=== PATIENT | male | born 1955 | race Caucasian/White ===

== ENCOUNTER 2016-04-26 07:00 | Day surgery (SDC) | payer OTHER ==
[2016-04-26] MEDS ORDERED: LACTATED RINGERS 1,000 ML IV ONE ×2 (08:13→11:55)
[2016-04-26] MEDS ORDERED: LIDOCAINE 1% 50 ML MDV SUBQ ONE (11:30)
[2016-04-26] MEDS ORDERED: PROPOFOL 200 MG/20 ML VIAL IVP ONE (11:30)
== END 2016-04-26 07:01 | disposition home or self-care (01) ==
PROC: 0DBN8ZX Excision of Sigmoid Colon, Via Natural or Artificial Opening Endoscopic, Diagnostic (ICD-10-PCS; principal; 2016-04-26 08:15)
DX: Z12.11 Encounter for screening for malignant neoplasm of colon (principal); D12.5 Benign neoplasm of sigmoid colon; K64.8 Other hemorrhoids; K57.30 Diverticulosis of large intestine without perforation or abscess without bleeding; I48.91 Unspecified atrial fibrillation; Z86.010 Personal history of colon polyps; F17.210 Nicotine dependence, cigarettes, uncomplicated; Z80.3 Family history of malignant neoplasm of breast; G47.30 Sleep apnea, unspecified; E66.9 Obesity, unspecified; Z68.41 Body mass index [BMI] 40.0-44.9, adult
CPT/HCPCS: 45385; 80053; 82550; 82553; 83735; 84100; 84484; 85025; 88305; 93005; 93308; J7120

== ENCOUNTER 2016-06-25 10:00 | Outpatient (CLI) | payer OTHER | END 2016-06-25 10:01 | disposition home or self-care (01) | DX: G47.33 Obstructive sleep apnea (adult) (pediatric) (principal) ==

== ENCOUNTER 2016-07-30 11:31 | Outpatient (CLI) | payer OTHER | END 2016-07-30 11:32 | disposition home or self-care (01) | DX: G47.33 Obstructive sleep apnea (adult) (pediatric) (principal); R00.0 Tachycardia, unspecified ==

== ENCOUNTER 2016-10-03 10:21 | Outpatient (CLI) | payer OTHER | END 2016-10-03 10:22 | disposition home or self-care (01) | LOC: SC 10:21 | PROVIDERS: ATTEND Nurse Practitioner Family | DX: G47.33 Obstructive sleep apnea (adult) (pediatric) (principal) | CPT/HCPCS: 99212; 99214 ==

== ENCOUNTER 2016-11-06 10:20 | Outpatient (CLI) | payer OTHER | END 2016-11-06 10:21 | disposition home or self-care (01) | LOC: SC 10:20 | PROVIDERS: ATTEND Nurse Practitioner Family | DX: G47.33 Obstructive sleep apnea (adult) (pediatric) (principal) | CPT/HCPCS: 99212; 99214 ==

== ENCOUNTER 2016-12-05 11:18 | Outpatient (CLI) | payer OTHER | END 2016-12-05 11:19 | disposition home or self-care (01) | LOC: SC 11:18 | PROVIDERS: ATTEND Nurse Practitioner Family | DX: G47.33 Obstructive sleep apnea (adult) (pediatric) (principal) | CPT/HCPCS: 99212; 99214 ==

== ENCOUNTER 2017-01-06 11:21 | Outpatient (CLI) | payer OTHER | END 2017-01-06 11:22 | disposition home or self-care (01) | LOC: SC 11:21 | PROVIDERS: ATTEND Nurse Practitioner Family | DX: G47.33 Obstructive sleep apnea (adult) (pediatric) (principal) | CPT/HCPCS: 99212; 99214 ==

== ENCOUNTER 2017-02-14 10:51 | Outpatient (CLI) | payer OTHER ==
[2017-02-14 12:53] LABS: BASOPHILS % (AUTO) 0.5 %; EOSINOPHILS # (AUTO) 0.1 10^3/uL (0.0-0.7); EOSINOPHILS % (AUTO) 1.5 %; HCT - HEMATOCRIT 48.4 % (42.0-52.0); HGB - HEMOGLOBIN 16.7 g/dL (14.0-18.0); LYMPHOCYTES # (AUTO) 1.9 10^3/uL (1.5-3.5); LYMPHOCYTES % (AUTO) 25.3 %; MEAN CORPUSCULAR HEMOGLOBIN 28.7 pg (27.0-31.0); MEAN CORPUSCULAR HGB CONC 34.6 g/dL (32.0-36.0); MEAN CORPUSCULAR VOLUME 82.8 fL (80.0-94.0); MEAN PLATELET VOLUME 8.4 fL (7.4-11.4); MONOCYTES # (AUTO) 0.4 10^3/uL (0.0-1.0); NEUTROPHILS # (AUTO) 4.9 10^3/uL (1.5-6.6); NEUTROPHILS % (AUTO) 66.7 %; NUCLEATED RED BLOOD CELLS AUTO 0.2 /100WBC; RED BLOOD COUNT 5.84 10^6/uL (4.70-6.10); UNCORRECTED WHITE BLOOD COUNT 7.3 x10^3/uL; WHITE BLOOD COUNT 7.3 x10^3/uL (4.8-10.8)
[2017-02-14 13:33] LABS: ALBUMIN/GLOBULIN RATIO 1.5 (1.0-2.2); BILIRUBIN,TOTAL 0.6 mg/dL (0.2-1.0); BUN - BLOOD UREA NITROGEN 15 mg/dL (6-20); CALCIUM 9.1 mg/dL (8.5-10.3); CARBON DIOXIDE - CO2 23 mmol/L (21-32); CHLORIDE 104 mmol/L (101-111); CHOL/HDL RATIO 6.5 (<5.0); CHOLESTEROL 196 mg/dL; CREATININE 0.9 mg/dL (0.6-1.2); GFR - MDRD 86 (>89); GLUCOSE 98 mg/dL (70-100); HDL CHOLESTEROL 30 mg/dL; LDL/HDL RATIO 4.3 (<3.6); POTASSIUM 4.1 mmol/L (3.5-5.0); SODIUM 136 mmol/L (135-145); TOTAL PROTEIN 7.4 g/dL (6.7-8.2); TRIGLYCERIDES 188 mg/dL; VLDL CHOLESTEROL 38 mg/dL
== END 2017-02-14 10:52 | disposition home or self-care (01) ==
LOC: LAB.WCP 10:51
PROVIDERS: ATTEND Family Medicine
DX: I48.91 Unspecified atrial fibrillation (principal); E78.9 Disorder of lipoprotein metabolism, unspecified; I10 Essential (primary) hypertension
CPT/HCPCS: 36415; 80053; 80061; 84443; 85025

== ENCOUNTER 2017-02-17 13:57 | Outpatient (CLI) | payer OTHER | END 2017-02-17 13:58 | disposition home or self-care (01) | LOC: SC 13:57 | PROVIDERS: ATTEND Nurse Practitioner Family | DX: G47.33 Obstructive sleep apnea (adult) (pediatric) (principal); G47.00 Insomnia, unspecified | CPT/HCPCS: 99212; 99214 ==

== ENCOUNTER 2017-03-27 11:29 | Outpatient (CLI) | payer OTHER | END 2017-03-27 11:30 | disposition home or self-care (01) | LOC: SC 11:29 | PROVIDERS: ATTEND Nurse Practitioner Family | DX: G47.33 Obstructive sleep apnea (adult) (pediatric) (principal); G47.00 Insomnia, unspecified | CPT/HCPCS: 99212; 99214 ==

== ENCOUNTER 2017-07-09 09:43 | Outpatient (CLI) | payer OTHER | END 2017-07-09 09:44 | disposition home or self-care (01) | LOC: SC 09:43 | PROVIDERS: ATTEND Nurse Practitioner Family | DX: G47.33 Obstructive sleep apnea (adult) (pediatric) (principal) | CPT/HCPCS: 99212; 99214 ==

== ENCOUNTER 2018-02-24 07:52 | Outpatient (CLI) | payer OTHER ==
[2018-02-24 12:59] LABS: ALBUMIN 4.1 g/dL (3.2-5.5); ALBUMIN/GLOBULIN RATIO 1.6 (1.0-2.2); ALKALINE PHOSPHATASE 64 IU/L (42-121); ALT ALANINE AMINOTRANSFERASE 25 IU/L (10-60); AST ASPARTATE AMINOTRANSFERASE 21 IU/L (10-42); BILIRUBIN,TOTAL 0.6 mg/dL (0.2-1.0); BUN - BLOOD UREA NITROGEN 12 mg/dL (6-20); CALCIUM 8.9 mg/dL (8.5-10.3); CARBON DIOXIDE - CO2 26 mmol/L (21-32); CHLORIDE 102 mmol/L (101-111); CHOL/HDL RATIO 6.3 (<5.0); CHOLESTEROL 203 mg/dL; CREATININE 0.9 mg/dL (0.6-1.2); GFR - MDRD 85 (>89); GLUCOSE 105 mg/dL (70-100); HDL CHOLESTEROL 32 mg/dL; LDL CHOLESTEROL,CALCULATED 119 mg/dL; LDL/HDL RATIO 3.7 (<3.6); SODIUM 135 mmol/L (135-145); TOTAL PROTEIN 6.6 g/dL (6.7-8.2); VLDL CHOLESTEROL 52 mg/dL
== END 2018-02-24 07:53 ==
LOC: LAB.WCP 07:52
PROVIDERS: ATTEND Family Medicine
DX: E78.9 Disorder of lipoprotein metabolism, unspecified (principal); Z12.5 Encounter for screening for malignant neoplasm of prostate
CPT/HCPCS: 36415; 80053; 80061; 83721; 84153

== ENCOUNTER 2018-09-18 07:37 | Outpatient (CLI) | payer OTHER ==
[2018-09-18 14:00] LABS: HEMOGLOBIN A1C 0.69 g/dL; HEMOGLOBIN A1C % 5.7 % (4.6-6.2)
[2018-09-18 14:07] LABS: ALBUMIN 4.5 g/dL (3.2-5.5); ALBUMIN/GLOBULIN RATIO 1.5 (1.0-2.2); BILIRUBIN,TOTAL 0.9 mg/dL (0.2-1.0); CREATININE 0.9 mg/dL (0.6-1.2); TOTAL PROTEIN 7.6 g/dL (6.7-8.2)
== END 2018-09-18 07:38 | disposition home or self-care (01) ==
LOC: LAB.WCP 07:37
PROVIDERS: ATTEND Family Medicine
DX: K76.0 Fatty (change of) liver, not elsewhere classified (principal); G47.33 Obstructive sleep apnea (adult) (pediatric); I48.91 Unspecified atrial fibrillation; I10 Essential (primary) hypertension
CPT/HCPCS: 36415; 80053; 83036; 84443

== ENCOUNTER 2020-01-03 08:52 | Outpatient (CLI) | payer MEDICARE, OTHER ==
[2020-01-03 09:59] VITALS: BP 112/80
--- NOTE | 2020-01-03 09:59 | SLEEP CARE CONSULTATION ---
Information from patient questionnaire entered by Sandi Mirza. I have reviewed and concur with the information entered by Sandi Mirza. This document represents the service I personally performed and the decisions made by me, Sheeba Infante, RN, MSN, ATHLETE MANAGER. History of Present Illness Service Date and Time: 01/03/2020 0852 Previous diagnosis: Severe, Obstructive Sleep Apnea-Hypopnea Syndrome AHI: 45.4 (in 2017) Reason for follow up: other (2 month with pressure change) Equipment type: CPAP Equipment obtained from: [facility] (he is not getting supplies despite ordering and call to [facility] and wonders if due to insurance change to Medicare) Mask style: Full face Backup mask available: Yes Last cushion change: 2 weeks ago - rotates all cushions Prior sleep studies: Yes Year and Where: 2016 - [facility], 2006 - [facility] ([place]) HPI additional information: Currently he has having trouble getting to sleep when awakens during the night. Recently it is due to things on mind due 's new diagnosis of cancer and proper housing to facilitate her care etc. Sleep Study - Results Prior sleep studies: Yes Year and Where: 2016 - [facility], 2006 - [facility] ([place]) CPAP Compliance Data - Data Reviewed with Patient Average duration of nightly device use: 6.4 Compliance rate %: 100 (60 days) Current pressure setting (cmH2O): 18 Humidity settin Heated hose settin Average residual AHI: 7.9 Central apnea: 0.6 Obstructive apnea: 3.1 Hypopnea: 4.3 Average large leak: 1 hr 58 min 48 sec Subjective Patient concerns: reports: mask leak noise, dry mouth, nose, throat (mild - occasionally), other (he falls asleep without mask 2-3 times a week watching TV without mask and then wakes ot use the bathroom and puts on mask). denies: aerophagia, mask discomfort, air blowing in eyes, condensation in mask/hose, nasal congestion, epistaxis Observed to snore while using device: No (sleep separately ) Current pressure setting perceived as: comfortable On therapy, patient: reports: sleeping better, awakening more refreshed, being more awake and alert during the day, more rested overall. denies: drowsiness while driving Initial [place] Sleepiness Scale score: 14 (in 2017) Current [place] Sleepiness Scale score: 5 Physical Exam Blood Pressure: 112/80 Cuff size: long Heart Rate: 70 O2 Saturation: 98 Height: 6 ft Weight: 307 lb Body Mass Index: 41.6 BMI Classification: Morbidly Obese Impression and Plan 1. Obstructive Sleep Apnea-Hypopnea Syndrome, severe, with good treatment compliance and good apnea control. On CPAP therapy, the patient has better sleep quality and is more rested overall. However, he is experiencing insomnia as noted below. His CPAP pressure was not changed as ordered for elevation of residual AHI but residual is slightly less with better control of his mask leaks as noted the past 2 weeks. Thus his elevated residual will be addressed with mask refitting rather than pressure change. Patient does not want to try new pressure range as ordered last visit but not completed. He is also to stop the rotation of all masks and instead use one new one each month for better seal with rationale. To prevent falling asleep without CPAP he is advised to put mask on before bed to reduce apnea risk and agreed with plan. Oral dryness can be reduced by adjusting humidity setting higher or heated hose lower or by adjusting both settings. Oral dryness can also be reduced by reducing mask leaks. Patient advised that chronic oral dryness can affect dental health and advised to follow up with dentist. In addition, there are oral dryness products that can be used to reduce dryness such as Biotene products, Dry mouth rinse and Xylomelts. Patient to discuss best option with dentist. Patient's apnea severity and rationale for treatment to reduce apnea, improve sleep quality and reduce cardiovascular and cerebrovascular events was reviewed. I also reviewed the benefit of consistent device use of CPAP for hypertension, arrhythmia. I also addressed patients weight and affect to his apnea and overall health. He may benefit from a diet consult to lose weight. A procurement director consultation can be obtained from his PCP and he is advised to discuss at [facility] up appointment scheduled. 2. Insomnia, due to life concerns and his spouses recent diagnosis of cancer. He may benefit for a referral to a counselor to assist him. Patient also feels this may benefit. He is advised to discuss with his PCP at upcoming appointment. Until then when he awakens , instead of tossing and turning in bed trying to get to sleep, he is advised to leave the bedroom and engage in a quiet activity until sleepy enough to return to bed. If unable to sleep due to things on the mind, it is recommended to write out the concerns or list to do as a release then return to a quiet activity until sleepy enough to return to bed. This is to be repeated as often as necessary to associate the bed with sleep and not frustration to get to sleep. [facility] How to Sleep Better pamphlet was reviewed by patient. * Continue CPAP pressure at 18 cmH2O * Mask refitting * Implement methods to improve mask fit and to reduce insomnia. * Notify me if snoring with mask or feeling that the pressure is too much or too little * Attempt to lose weight * Folllow up with PCP for referral to procurement director and to a counselor as noted above * Call this office if any problems using CPAP * Return for follow up in 1-2 months , or sooner if concerns arise Counseling Topics: Weight loss health impact, Discuss weight with PCP Visit Type: In Office Time Spent with Patient (minutes): 40 Provider Statement: I spent 100% of the Face to Face Visit with the patient with greater than 50% spent counseling the patient and coordination of care.
== END 2020-01-03 08:53 | disposition home or self-care (01) ==
LOC: SC 08:52
PROVIDERS: ATTEND Nurse Practitioner Family
DX: G47.33 Obstructive sleep apnea (adult) (pediatric) (principal); E66.01 Morbid (severe) obesity due to excess calories; Z68.41 Body mass index [BMI] 40.0-44.9, adult; G47.00 Insomnia, unspecified
CPT/HCPCS: 99215; G0463; 99212

== ENCOUNTER 2020-01-06 07:30 | Outpatient (CLI) | payer MEDICARE, OTHER ==
[2020-01-06 11:56] LABS: ALBUMIN 4.4 g/dL (3.2-5.5); ALBUMIN/GLOBULIN RATIO 1.5 (1.0-2.2); ALKALINE PHOSPHATASE 75 IU/L (42-121); ALT ALANINE AMINOTRANSFERASE 25 IU/L (10-60); AST ASPARTATE AMINOTRANSFERASE 27 IU/L (10-42); BILIRUBIN,TOTAL 0.6 mg/dL (0.2-1.0); BUN - BLOOD UREA NITROGEN 14 mg/dL (6-20); CALCIUM 9.2 mg/dL (8.5-10.3); CARBON DIOXIDE - CO2 24 mmol/L (21-32); CHLORIDE 108 mmol/L (101-111); CHOL/HDL RATIO 4.9 (<5.0); CHOLESTEROL 187 mg/dL; CREATININE 0.9 mg/dL (0.6-1.2); GLUCOSE 113 mg/dL (70-100); HDL CHOLESTEROL 38 mg/dL; LDL CHOLESTEROL,CALCULATED 110 mg/dL; LDL/HDL RATIO 2.9 (<3.6); SODIUM 141 mmol/L (135-145); TOTAL PROTEIN 7.4 g/dL (6.7-8.2); VLDL CHOLESTEROL 39 mg/dL
[2020-01-06 11:59] LABS: BASOPHILS % (AUTO) 0.5 %; EOSINOPHILS # (AUTO) 0.1 10^3/uL (0.0-0.7); EOSINOPHILS % (AUTO) 1.4 %; HGB - HEMOGLOBIN 16.7 g/dL (14.0-18.0); LYMPHOCYTES # (AUTO) 0.9 10^3/uL (1.5-3.5); LYMPHOCYTES % (AUTO) 15.7 %; MEAN CORPUSCULAR HEMOGLOBIN 29.6 pg (27.0-31.0); MEAN CORPUSCULAR HGB CONC 34.1 g/dL (32.0-36.0); MEAN CORPUSCULAR VOLUME 86.7 fL (80.0-94.0); MEAN PLATELET VOLUME 10.9 fL (7.4-11.4); MONOCYTES # (AUTO) 0.5 10^3/uL (0.0-1.0); MONOCYTES % (AUTO) 8.6 %; NEUTROPHILS # (AUTO) 4.3 10^3/uL (1.5-6.6); NEUTROPHILS % (AUTO) 73.3 %; PLT - PLATELET COUNT 156 10^3/uL (130-450); RED BLOOD COUNT 5.65 10^6/uL (4.70-6.10); RED CELL DISTRIBUTION WIDTH 13.6 % (12.0-15.0); WHITE BLOOD COUNT 5.9 x10^3/uL (4.8-10.8)
== END 2020-01-06 23:59 | disposition home or self-care (01) ==
LOC: LAB.WCP 07:30
PROVIDERS: ATTEND Family Medicine
DX: K76.0 Fatty (change of) liver, not elsewhere classified (principal); G47.33 Obstructive sleep apnea (adult) (pediatric); I48.91 Unspecified atrial fibrillation; Z12.5 Encounter for screening for malignant neoplasm of prostate; E78.9 Disorder of lipoprotein metabolism, unspecified
CPT/HCPCS: 36415; 80053; 80061; 84443; 85025; G0103; 83721; 84153

== ENCOUNTER 2020-05-12 12:46 | Outpatient (CLI) | payer MEDICARE, OTHER ==
--- NOTE | 2020-05-12 14:18 | XRAY Report ---
PROCEDURE: Lumbar Spine 2 View INDICATIONS: LOW BACK PAIN TECHNIQUE: 3 views of the lumbar spine were acquired. COMPARISON: None. FINDINGS: Bones: 5 [id number]-[id number] vertebrae are present. There is normal bony alignment. No vertebral body compression fractures. No suspicious bony lesions. Note is made of bridging ankylosis along the low thoracic spine extending into above the fnaay-nz-[id number]. This extends from at least T10-L2. At L2-L3 t here is a moderate degree of degenerative disc disease and anterior osteophyte formation. An ill 3-4 only a slight degree of degenerative disc disease is seen. L4-L5 and L5-S1 show a moderate degree of degeneration at the disc. Facet osteoarthritis is mild to moderate at these 2 levels. Soft tissues: Overlying bowel gas pattern is normal. No suspicious soft tissue calcifications. IMPRESSION: No trauma found. Note is made of ankylosis from T10 to L2, potentially extending cephala d higher within the thoracic spine. Ankylosing spondylitis could explain this appearance and therefor e further assessment of the thoracic spine is recommended. The appearance of the lumbosacral spine fr om L2 inferiorly is more conventional with mild to moderate degenerative disc disease and facet osteo arthritis as discussed. Reviewed by: Kamar Alatorre MD on 05/12/2020 2:17 PM PST Approved by: Kamar Alatorre MD on 05/12/2020 2:17 PM PST Station ID: [id number]
== END 2020-05-12 12:47 | disposition home or self-care (01) ==
LOC: DI 12:46
PROVIDERS: ATTEND Nurse Practitioner
DX: G60.9 Hereditary and idiopathic neuropathy, unspecified (principal); M51.37 Other intervertebral disc degeneration, lumbosacral region; M47.817 Spondylosis without myelopathy or radiculopathy, lumbosacral region
CPT/HCPCS: 36415; 82607; 83735

== ENCOUNTER 2020-05-17 11:37 | Outpatient (CLI) | payer MEDICARE, OTHER ==
--- NOTE | 2020-05-17 13:10 | XRAY Report ---
PROCEDURE: Thoracic Spine 2 View INDICATIONS: ANKYLOSIS TECHNIQUE: 3 views of the thoracic spine were acquired. COMPARISON: None. FINDINGS: Bones: No fractures or dislocations. No suspicious bony lesions. A pattern of ankylosis along the lower third of the thoracic spine extending into the lumbosacral spine can be seen. More superiorly a t the mid thoracic spine there are several independent disc spaces that are maintained and then at th e upper thoracic spine 3 adjacent vertebral bodies appear to show ankylosis. 12 pairs of ribs are not ed, and appear intact where visualized. Soft tissues: No paravertebral stripe thickening. IMPRESSION: Trauma associated with ankylosing spondylitis is not seen. Complete ankylosis is not identified. Anky losis to this degree, however, does predispose to significant spine trauma after relatively mild inju ry. If pain after trauma is present follow-up by thoracic spine MR scanning may be warranted at this time. Reviewed by: Kamar Alatorre MD on 05/17/2020 1:09 PM PST Approved by: Kamar Alatorre MD on 05/17/2020 1:09 PM PST Station ID: [id number]
== END 2020-05-17 11:38 | disposition home or self-care (01) ==
LOC: DI 11:37
PROVIDERS: ATTEND Family Medicine
DX: M24.60 Ankylosis, unspecified joint (principal)

== ENCOUNTER 2020-05-25 12:09 | Outpatient (CLI) | payer MEDICARE, OTHER ==
--- NOTE | 2020-05-25 13:31 | XRAY Report ---
PROCEDURE: Toe(s) LT INDICATIONS: BLISTER, LEFT FOOT TECHNIQUE: 3 views of the left first toe(s) acquired. COMPARISON: None FINDINGS: Bones: No fractures or dislocations. No suspicious bony lesions. Mild joint space narrowing and pe riarticular osteophyte formation at the first metatarsophalangeal joint, as well as the interphalange al joints of the digits. Soft tissues: No suspicious soft tissue densities. IMPRESSION: Osteoarthritis. No acute fracture. No osseous lesion. If symptoms and/or clinical suspicion for patho logy continue, further assessment with repeat plain films, or advanced imaging (e.g., CT, MRI, or bon e scan) is recommended for further assessment. Reviewed by: Maico Schaffer MD on 05/25/2020 1:29 PM PST Approved by: Maico Schaffer MD on 05/25/2020 1:29 PM [facility] Station ID: [id number]
== END 2020-05-25 23:59 | disposition home or self-care (01) ==
LOC: DI.N 12:09
PROVIDERS: ATTEND Physician Assistant Medical
DX: S90.822A Blister (nonthermal), left foot, initial encounter (principal); M19.072 Primary osteoarthritis, left ankle and foot

== ENCOUNTER 2020-06-22 13:47 | Outpatient (CLI) | payer MEDICARE, OTHER ==
--- NOTE | 2020-06-22 16:59 | XRAY Report ---
PROCEDURE: Pelvis 1 View INDICATIONS: LOW BACK PAIN TECHNIQUE: 2 view(s) of the pelvis acquired. COMPARISON: Lumbar spine radiographs dated 05/12/2020. FINDINGS: Bones: No acute fractures or dislocations. Moderate-severe degenerative changes of the bilateral hi p joints. Moderate lower lumbar spondylosis. The bilateral sacroiliac joints are not well visualized and possibly fused. No suspicious bony lesions. Soft tissues: Visualized bowel gas pattern is normal. No suspicious soft tissue calcifications. IMPRESSION: No acute fracture or dislocation. Moderate-severe lateral hip degenerative change. Moder ate lower lumbar spondylosis. Suggestion of possible fusion across the bilateral sacroiliac joint. Reviewed by: Humberto Sun MD on 06/22/2020 4:58 PM PDT Approved by: Humberto Sun MD on 06/22/2020 4:58 PM PDT Station ID: [id number]
== END 2020-06-22 13:48 | disposition home or self-care (01) ==
LOC: DI 13:47
PROVIDERS: ATTEND Internal Medicine Rheumatology
DX: M54.5 Low back pain (principal); M47.816 Spondylosis without myelopathy or radiculopathy, lumbar region; M16.0 Bilateral primary osteoarthritis of hip

== ENCOUNTER 2020-11-23 07:01 | Outpatient (CLI) | payer MEDICARE, OTHER ==
--- NOTE | 2020-11-23 12:52 | Ultrasound Report ---
PROCEDURE: Aorta Screening INDICATIONS: HISTORY OF SMOKING TECHNIQUE: Real time scanning was performed of the aorta and iliac arteries, with image documentatio n. COMPARISON: None. FINDINGS: Aorta: Proximal aortic diameter measures 2.9 x 2.9 cm. Mid-aorta measures 2.5 x 2.5 cm. Distal aor tic diameter is 2.6 x 2.5 cm. Iliac arteries: Right common iliac artery measures 1.5 x 1.6 cm. Left common iliac artery measures 1.3 x 1.6 cm. IMPRESSION: No aneurysm identified. Reviewed by: Olivier Wilhelm MD on 11/23/2020 12:51 PM PDT Approved by: Olivier Wilhelm MD on 11/23/2020 12:51 PM PDT Station ID: [id number]
--- NOTE | 2020-11-23 14:03 | CT Report ---
PROCEDURE: Low Dose Lung Cancer Screen INDICATIONS: HISTORY OF SMOKING TECHNIQUE: Noncontrast low-dose images were acquired from the pulmonary apices to the posterior costophrenic ang les. Multiplanar MIP reformats were then acquired. For radiation dose reduction, the following was used: automated exposure control, adjustment of mA and/or kV according to patient size. COMPARISON: None. FINDINGS: Image quality: Excellent. Lungs and pleura: A few punctate calcified granulomas are noted. No focal consolidation or mass. No pneumothorax or pleural effusion. Mediastinum: Heart size is normal. No pericardial effusion. No mediastinal adenopathy by size crit eria. Thoracic aorta and central pulmonary arteries are normal in size. Esophagus is normal in terrence tejal. No hiatal hernia. Bones and chest wall: No suspicious bony lesions. There are degenerative changes of the thoracic sp ine. The coronary arteries have atherosclerotic calcifications. No vertebral body compression fractur es. No axillary or supraclavicular adenopathy by size criteria. The thyroid is normal in size and t here are no incidental findings. Abdomen: Visualized upper abdomen solid organs and bowel loops appear normal in the absence of contr ast. IMPRESSION: 1. Lung RADS 1. No nodules or definitely benign nodules. Recommend continued annual screening with lo w dose CT. 2. No acute abnormality. 3. Coronary artery disease. Reviewed by: Neo Adorno on 11/23/2020 2:02 PM PDT Approved by: Neo Adorno on 11/23/2020 2:02 PM PDT Station ID: [id number]
== END 2020-11-23 07:02 | disposition home or self-care (01) ==
LOC: DI 07:01
PROVIDERS: ATTEND Internal Medicine
DX: Z12.2 Encounter for screening for malignant neoplasm of respiratory organs (principal); Z13.6 Encounter for screening for cardiovascular disorders; I25.10 Atherosclerotic heart disease of native coronary artery without angina pectoris; Z87.891 Personal history of nicotine dependence

== ENCOUNTER 2021-01-24 15:48 | Outpatient (CLI) | payer MEDICARE, OTHER ==
[2021-01-24 16:21] VITALS: BP 125/80
--- NOTE | 2021-01-24 16:21 | SLEEP CARE CONSULTATION ---
Information from patient questionnaire entered by Theresa Wilder. I have reviewed and concur with the information entered by Theresa Wilder. This document represents the service I personally performed and the decisions made by me, Shira Hunt ARNP. History of Present Illness Service Date and Time: 01/24/2021 1548 Previous diagnosis: Severe, Obstructive Sleep Apnea-Hypopnea Syndrome AHI: 45.4 (in 2017) Reason for follow up: annual (Last seen 12/2019) Equipment type: CPAP Equipment obtained from: [employer] (getting supplies as needed) Mask style: Full face Backup mask available: Yes (other mask) Last cushion change: he cycles through a few masks regularly Prior sleep studies: Yes Year and Where: 2016 - [facility], 2006 - [facility] ([place]) HPI additional information: MERARY FISCHER was diagnosed to have severe, AHI 45.4, obstructive sleep apnea- hypopnea syndrome and returned today for CPAP therapy annual follow-up. CPAP Compliance Data - Data Reviewed with Patient Average duration of nightly device use: 6 h 21 min Compliance rate %: 100 Current pressure setting (cmH2O): 18 Humidity settin Heated hose settin Average residual AHI: 9.1 Average large leak: 2 h 7 min Subjective Patient concerns: reports: air blowing in eyes, other (fit of mask; mask is sliding up). denies: aerophagia, mask discomfort, mask leak noise, condensation in mask/hose, nasal congestion, dry mouth, nose, throat, epistaxis Observed to snore while using device: No Current pressure setting perceived as: comfortable On therapy, patient: reports: sleeping better, awakening more refreshed, being more awake and alert during the day, more rested overall. denies: drowsiness while driving Initial [place] Sleepiness Scale score: 14 (in 2017) Current [place] Sleepiness Scale score: 6 Allergies and Home Medications Home medication list reviewed: Yes (no changes) Review of Systems Review of systems same as previous: Yes (no changes) Physical Exam Blood Pressure: 125/80 Cuff size: wrist Heart Rate: 80 O2 Saturation: 98 Height: 6 ft Weight: 322 lb Weight change since last visit: 15 lb gain Body Mass Index: 43.7 BMI Classification: Morbidly Obese Impression and Plan 1. Obstructive Sleep Apnea-Hypopnea Syndrome, severe, with excellent treatment compliance and fair apnea control with mildly elevated residual AHI. On CPAP therapy, the patient has better sleep quality and is more rested overall. Patient is very satisfied with CPAP therapy and has significant improvement of his sleep apnea. Patient has already registered their device for the recall. Patient denies any black particles seen in machine or hoses, any unusual odors coming from device. Patient has not experienced any physical symptoms such as upper airway irritation, headache, skin or eye irritation, asthma, nausea/vomiting, difficulty breathing or chest pain. If patient is not able to sleep due to waking up choking, gasping for air or other respiratory distress that they may decide to continue using it until it is either replaced or repaired. Patient voiced understanding and agreement with plan. Patient's apnea severity and rationale for treatment to reduce apnea, improve sleep quality and reduce cardiovascular and cerebrovascular events was reviewed. I also reviewed the benefit of consistent device use of CPAP for hypertension and arrhythmia. * Continue CPAP pressure at 18 cmH2O * Notify me if snoring with mask or feeling that the pressure is too much or too little * Attempt to lose weight * Call this office if any problems using CPAP * Return for follow up in 1 year, or sooner if concerns arise Counseling Topics: Spare mask, Weight loss health impact Visit Type: In Office Time Spent with Patient (minutes): 21 Provider Statement: I spent 100% of the Face to Face Visit with the patient with greater than 50% spent counseling the patient and coordination of care.
== END 2021-01-24 15:49 | disposition home or self-care (01) ==
LOC: SC 15:48
PROVIDERS: ATTEND Nurse Practitioner Family
DX: G47.33 Obstructive sleep apnea (adult) (pediatric) (principal); E66.01 Morbid (severe) obesity due to excess calories; Z68.41 Body mass index [BMI] 40.0-44.9, adult
CPT/HCPCS: 99213; G0463; 99212

== ENCOUNTER 2021-04-14 15:28 | Outpatient (CLI) | payer MEDICARE, OTHER ==
[2021-04-14 17:28] LABS: BASOPHILS % (AUTO) 0.2 %; EOSINOPHILS % (AUTO) 0.1 %; HCT - HEMATOCRIT 49.1 % (42.0-52.0); HGB - HEMOGLOBIN 16.6 g/dL (14.0-18.0); LYMPHOCYTES # (AUTO) 0.8 10^3/uL (1.5-3.5); LYMPHOCYTES % (AUTO) 4.8 %; MEAN CORPUSCULAR HEMOGLOBIN 29.1 pg (27.0-31.0); MEAN CORPUSCULAR HGB CONC 33.8 g/dL (32.0-36.0); MONOCYTES # (AUTO) 1.2 10^3/uL (0.0-1.0); MONOCYTES % (AUTO) 7.5 %; NEUTROPHILS # (AUTO) 14.3 10^3/uL (1.5-6.6); PLT - PLATELET COUNT 205 10^3/uL (130-450); RED BLOOD COUNT 5.71 10^6/uL (4.70-6.10); RED CELL DISTRIBUTION WIDTH 13.6 % (12.0-15.0); WHITE BLOOD COUNT 16.4 x10^3/uL (4.8-10.8)
[2021-04-14 17:38] LABS: ALBUMIN 4.2 g/dL (3.2-5.5); ALBUMIN/GLOBULIN RATIO 1.1 (1.0-2.2); BILIRUBIN,TOTAL 1.4 mg/dL (0.2-1.0); CALCIUM 9.1 mg/dL (8.5-10.3); POTASSIUM 3.8 mmol/L (3.5-5.0); TOTAL PROTEIN 8.1 g/dL (6.7-8.2)
[2021-04-14 17:55] LABS: THYROID STIMULATING HORMONE 1.54 uIU/mL (0.34-5.60)
[2021-04-14 21:01] LABS: ESTIMATED AVERAGE GLUCOSE 117 mg/dL (70-100); HEMOGLOBIN A1c% 5.7 % (4.27-6.07)
== END 2021-04-14 23:59 | disposition home or self-care (01) ==
LOC: LAB.N 15:28
PROVIDERS: ATTEND Family Medicine
DX: N50.89 Other specified disorders of the male genital organs (principal); R06.09 Other forms of dyspnea; R73.01 Impaired fasting glucose
CPT/HCPCS: 36415; 80053; 83036; 83880; 84443; 85025

== ENCOUNTER 2021-05-19 08:00 | Outpatient (CLI) | payer MEDICARE, OTHER | END 2021-05-19 23:59 | LOC: LAB.N 08:00 | PROVIDERS: ATTEND Family Medicine | DX: N49.2 Inflammatory disorders of scrotum (principal) | CPT/HCPCS: 87070; 87077; 87181; 87205 ==

== ENCOUNTER 2021-06-01 07:42 | Outpatient (CLI) | payer MEDICARE, OTHER ==
--- NOTE | 2021-06-01 12:16 | XRAY Report ---
PROCEDURE: Pelvis 1 View INDICATIONS: ANKYLOSING SPONDYLITIS TECHNIQUE: 2 view(s) of the pelvis acquired. COMPARISON: None. FINDINGS: Bones: No fractures or dislocations. There is complete ankylosis of left sacroiliac joint and partia l ankylosis of right sacroiliac joint. Moderate left worse than right bilateral hip joint osteoarthri tic changes are seen. No evidence of avascular necrosis of femoral head. No suspicious intraosseous l esion. Soft tissues: Visualized bowel gas pattern is normal. No suspicious soft tissue calcifications. IMPRESSION: 1. Completely ankylosis of left sacroiliac joint and partial ankylosis of right sacroiliac joint. 2. Left worse in right bilateral hip joint osteoarthritis. No evidence of avascular necrosis of femor al head. Reviewed by: Prem Kaye MD on 06/01/2021 9:43 AM PST Approved by: Prem Kaye MD on 06/01/2021 9:43 AM PST Station ID: [id number]
--- NOTE | 2021-06-01 12:16 | XRAY Report ---
PROCEDURE: Thoracic Spine 2 View INDICATIONS: ANKYLOSING SPONDYLITIS TECHNIQUE: 3 views of the thoracic spine were acquired. COMPARISON: None. FINDINGS: Bones: No fractures or dislocations. Anterior bridging osteophyte formation throughout thoracic spin e is seen with degenerative endplate changes noted throughout mid to lower thoracic spine. No suspici ous bony lesions. 12 pairs of ribs are noted, and appear intact where visualized. Soft tissues: No paravertebral stripe thickening. IMPRESSION: Degenerative disc disease throughout mid to lower thoracic spine with bridging anterior osteophytes t hroughout thoracic spine consistent with patient's history of ankylosing spondylitis. No fracture or dislocation. Reviewed by: Prem Kaye MD on 06/01/2021 9:45 AM PST Approved by: Prem Kaye MD on 06/01/2021 9:45 AM PST Station ID: [id number]
--- NOTE | 2021-06-01 12:16 | XRAY Report ---
PROCEDURE: Lumbar Spine 2 View INDICATIONS: ANKYLOSING SPONDYLITIS TECHNIQUE: 2 views of the lumbar spine were acquired. COMPARISON: None. FINDINGS: Bones: 5 [id number] vertebrae are present. There is straightening of normal lumbar lordosis. D egenerative endplate changes and prominent anterior disc osteophyte complex formation throughout lumb ar spine is seen. No vertebral body compression fractures. No suspicious bony lesions. Soft tissues: Overlying bowel gas pattern is normal. No suspicious soft tissue calcifications. IMPRESSION: Degenerative disc disease throughout lumbar spine as above. No acute compression fractur e or spondylolisthesis. Reviewed by: Prem Kaye MD on 06/01/2021 9:44 AM PST Approved by: Prem Kaye MD on 06/01/2021 9:44 AM PST Station ID: [id number]
== END 2021-06-01 07:43 | disposition home or self-care (01) ==
LOC: DI 07:42
PROVIDERS: ATTEND Internal Medicine Rheumatology
DX: M45.4 Ankylosing spondylitis of thoracic region (principal); M45.6 Ankylosing spondylitis lumbar region; M51.34 Other intervertebral disc degeneration, thoracic region; M51.36 Other intervertebral disc degeneration, lumbar region

== ENCOUNTER 2021-06-29 07:19 | Outpatient (CLI) | payer MEDICARE, OTHER ==
[2021-06-29 11:51] LABS: BASOPHILS # (AUTO) 0.1 10^3/uL (0.0-0.1); BASOPHILS % (AUTO) 1.1 %; EOSINOPHILS # (AUTO) 0.1 10^3/uL (0.0-0.7); EOSINOPHILS % (AUTO) 2.9 %; HCT - HEMATOCRIT 46.5 % (42.0-52.0); HGB - HEMOGLOBIN 15.6 g/dL (14.0-18.0); LYMPHOCYTES # (AUTO) 1.1 10^3/uL (1.5-3.5); LYMPHOCYTES % (AUTO) 23.6 %; MEAN CORPUSCULAR HEMOGLOBIN 28.7 pg (27.0-31.0); MEAN CORPUSCULAR HGB CONC 33.5 g/dL (32.0-36.0); MEAN CORPUSCULAR VOLUME 85.6 fL (80.0-94.0); MONOCYTES # (AUTO) 0.3 10^3/uL (0.0-1.0); MONOCYTES % (AUTO) 6.9 %; NEUTROPHILS # (AUTO) 3.1 10^3/uL (1.5-6.6); NEUTROPHILS % (AUTO) 65.1 %; PLT - PLATELET COUNT 245 10^3/uL (130-450); RED BLOOD COUNT 5.43 10^6/uL (4.70-6.10); WHITE BLOOD COUNT 4.8 x10^3/uL (4.8-10.8)
[2021-06-29 12:05] LABS: CREATININE,URINE 101.1 mg/dL; MICROALBUM/CREATININE RATIO,UR 20.8 ug/mg (<30.0); MICROALBUMIN,URINE 2.1 mg/dL (0-300.0)
[2021-06-29 12:25] LABS: ESTIMATED AVERAGE GLUCOSE 120 mg/dL (70-100); HEMOGLOBIN A1c% 5.8 % (4.27-6.07)
[2021-06-29 12:29] LABS: ALBUMIN/GLOBULIN RATIO 1.3 (1.0-2.2); ALKALINE PHOSPHATASE 66 IU/L (42-121); ALT ALANINE AMINOTRANSFERASE 17 IU/L (10-60); AST ASPARTATE AMINOTRANSFERASE 17 IU/L (10-42); BILIRUBIN,TOTAL 0.6 mg/dL (0.2-1.0); BUN - BLOOD UREA NITROGEN 18 mg/dL (6-20); CALCIUM 9.2 mg/dL (8.5-10.3); CARBON DIOXIDE - CO2 26 mmol/L (21-32); CHLORIDE 104 mmol/L (101-111); CHOL/HDL RATIO 6.8 (<5.0); CHOLESTEROL 203 mg/dL; GFR - MDRD 75 (>89); GLUCOSE 121 mg/dL (70-100); HDL CHOLESTEROL 30 mg/dL; LDL CHOLESTEROL,CALCULATED 129 mg/dL; LDL/HDL RATIO 4.3 (<3.6); POTASSIUM 4.1 mmol/L (3.5-5.0); SODIUM 139 mmol/L (135-145); TOTAL PROTEIN 7.2 g/dL (6.7-8.2); TRIGLYCERIDES 218 mg/dL; VLDL CHOLESTEROL 44 mg/dL
[2021-06-29 12:37] LABS: THYROID STIMULATING HORMONE 2.53 uIU/mL (0.34-5.60)
== END 2021-06-29 07:20 | disposition home or self-care (01) ==
LOC: LAB.N 07:19
PROVIDERS: ATTEND Internal Medicine
DX: I10 Essential (primary) hypertension (principal); E78.5 Hyperlipidemia, unspecified; R73.01 Impaired fasting glucose; N40.1 Benign prostatic hyperplasia with lower urinary tract symptoms; I48.21 Permanent atrial fibrillation
CPT/HCPCS: 36415; 80053; 80061; 82043; 82570; 83036; 83721; 84153; 84443; 85025

== ENCOUNTER 2021-11-27 07:35 | Outpatient (CLI) | payer MEDICARE, OTHER ==
[2021-11-27 11:52] LABS: BASOPHILS % (AUTO) 0.9 %; EOSINOPHILS # (AUTO) 0.1 10^3/uL (0.0-0.7); EOSINOPHILS % (AUTO) 1.7 %; HCT - HEMATOCRIT 46.9 % (42.0-52.0); HGB - HEMOGLOBIN 15.8 g/dL (14.0-18.0); LYMPHOCYTES % (AUTO) 21.6 %; MEAN CORPUSCULAR HEMOGLOBIN 28.4 pg (27.0-31.0); MEAN CORPUSCULAR HGB CONC 33.7 g/dL (32.0-36.0); MEAN CORPUSCULAR VOLUME 84.2 fL (80.0-94.0); MEAN PLATELET VOLUME 10.1 fL (7.4-11.4); MONOCYTES # (AUTO) 0.3 10^3/uL (0.0-1.0); MONOCYTES % (AUTO) 6.6 %; NEUTROPHILS # (AUTO) 3.2 10^3/uL (1.5-6.6); NEUTROPHILS % (AUTO) 68.8 %; PLT - PLATELET COUNT 193 10^3/uL (130-450); RED BLOOD COUNT 5.57 10^6/uL (4.70-6.10); WHITE BLOOD COUNT 4.7 x10^3/uL (4.8-10.8)
[2021-11-27 12:09] LABS: ALBUMIN 4.5 g/dL (3.2-5.5); ALBUMIN/GLOBULIN RATIO 1.6 (1.0-2.2); ALKALINE PHOSPHATASE 75 IU/L (42-121); ALT ALANINE AMINOTRANSFERASE 17 IU/L (10-60); AST ASPARTATE AMINOTRANSFERASE 17 IU/L (10-42); BILIRUBIN,TOTAL 0.7 mg/dL (0.2-1.0); BUN - BLOOD UREA NITROGEN 18 mg/dL (6-20); CALCIUM 9.1 mg/dL (8.5-10.3); CARBON DIOXIDE - CO2 25 mmol/L (21-32); CHLORIDE 103 mmol/L (101-111); CHOL/HDL RATIO 6.1 (<5.0); CHOLESTEROL 189 mg/dL; CREATININE 0.9 mg/dL (0.6-1.2); GFR - MDRD 84 (>89); GLUCOSE 119 mg/dL (70-100); HDL CHOLESTEROL 31 mg/dL; LDL CHOLESTEROL,CALCULATED 120 mg/dL; LDL/HDL RATIO 3.9 (<3.6); POTASSIUM 4.1 mmol/L (3.5-5.0); SODIUM 137 mmol/L (135-145); TOTAL PROTEIN 7.4 g/dL (6.7-8.2); TRIGLYCERIDES 192 mg/dL; VLDL CHOLESTEROL 38 mg/dL
[2021-11-27 12:14] LABS: ESTIMATED AVERAGE GLUCOSE 117 mg/dL (70-100); HEMOGLOBIN A1c% 5.7 % (4.27-6.07)
[2021-11-27 12:20] LABS: THYROID STIMULATING HORMONE 1.42 uIU/mL (0.34-5.60)
[2021-11-28 16:08] LABS: IMMUNOGLOBULIN A 323 mg/dL (61-437); IMMUNOGLOBULIN G 1179 mg/dL (603-1613); IMMUNOGLOBULIN M 72 mg/dL (20-172)
== END 2021-11-27 07:36 | disposition home or self-care (01) ==
LOC: LAB.N 07:35
PROVIDERS: ATTEND Internal Medicine
DX: I10 Essential (primary) hypertension (principal); E78.5 Hyperlipidemia, unspecified; R73.03 Prediabetes; G62.9 Polyneuropathy, unspecified; I48.21 Permanent atrial fibrillation
CPT/HCPCS: 36415; 80053; 80061; 82607; 82784; 83036; 83721; 84443; 85025; 86334

== ENCOUNTER 2022-03-29 07:32 | Outpatient (CLI) | payer MEDICARE, OTHER ==
[2022-03-29 12:15] LABS: ESTIMATED AVERAGE GLUCOSE 126 mg/dL (70-100)
[2022-03-29 12:46] LABS: BUN - BLOOD UREA NITROGEN 20 mg/dL (6-20); CARBON DIOXIDE - CO2 26 mmol/L (21-32); CHLORIDE 102 mmol/L (101-111); CHOL/HDL RATIO 6.7 (<5.0); CHOLESTEROL 214 mg/dL; GFR - MDRD 75 (>89); GLUCOSE 118 mg/dL (70-100); HDL CHOLESTEROL 32 mg/dL; LDL CHOLESTEROL,CALCULATED 140 mg/dL; LDL/HDL RATIO 4.4 (<3.6); POTASSIUM 4.1 mmol/L (3.5-5.0); SODIUM 136 mmol/L (135-145); TRIGLYCERIDES 210 mg/dL; VLDL CHOLESTEROL 42 mg/dL
[2022-03-29 12:52] LABS: THYROID STIMULATING HORMONE 2.03 uIU/mL (0.34-5.60)
== END 2022-03-29 07:33 | disposition home or self-care (01) ==
LOC: LAB.N 07:32
PROVIDERS: ATTEND Internal Medicine
DX: I10 Essential (primary) hypertension (principal); E78.5 Hyperlipidemia, unspecified; R73.03 Prediabetes; I48.21 Permanent atrial fibrillation
CPT/HCPCS: 36415; 80048; 80061; 83036; 83721; 84443

== ENCOUNTER 2022-04-15 13:51 | Outpatient (CLI) | payer MEDICARE, OTHER ==
--- NOTE | 2022-04-15 15:14 | XRAY Report ---
PROCEDURE: Foot 3 View BILAT INDICATIONS: FOOT PAIN TECHNIQUE: 3 views of each foot COMPARISON: None FINDINGS: Right foot: Mild scattered arthrosis, particularly the first MTP. No displaced fracture or dislocatio n. Slight hallux valgus alignment. Achilles insertional tendinopathy and distal Achilles calcificatio n. Left foot: Mild to moderate scattered arthrosis, particularly the first MTP. No displaced fracture or dislocation. Slight hallux valgus alignment. Suspected os peroneum on lateral view, versus age-indet erminate old fracture fragment, correlate for location of symptoms Soft tissues: No suspicious calcifications otherwise. IMPRESSION: Scattered arthrosis bilaterally, particularly the first MTP, slightly more on the left side. No acute radiographic abnormality. Other findings as above. If there is high concern for further derangement, consider MRI evaluation. Reviewed by: Nicola Pablo MD on 04/15/2022 3:12 PM PST Approved by: Nicola Pablo MD on 04/15/2022 3:12 PM PST Station ID: [id number]
== END 2022-04-15 13:52 | disposition home or self-care (01) ==
LOC: DI 13:51
PROVIDERS: ATTEND Internal Medicine
DX: M19.071 Primary osteoarthritis, right ankle and foot (principal); M19.072 Primary osteoarthritis, left ankle and foot

== ENCOUNTER 2022-07-10 10:30 | Outpatient (CLI) | payer MEDICARE, OTHER ==
[2022-07-10 11:04] VITALS: BP 102/70
--- NOTE | 2022-07-10 11:04 | SLEEP CARE CONSULTATION ---
Information from patient questionnaire entered by Miracle Robledo. I have reviewed and concur with the information entered by Miracle Robledo. This document represents the service I personally performed and the decisions made by me, Shira Hunt ARNP. History of Present Illness Service Date and Time: 07/10/2022 1030 Previous diagnosis: Severe, Obstructive Sleep Apnea-Hypopnea Syndrome AHI: 45.4 (in 2017) Reason for follow up: annual (LAST SEEN 12/2020) Equipment type: CPAP (ALVAREZ Dreamstation; SD NEEDED FOR DOWNLOAD AND PRESSURE CHANGES) Equipment obtained from: [employer] (getting supplies as needed) Mask style: Full face Mask brand: Respironics (Yancy View) Backup mask available: Yes (old mask) Prior sleep studies: Yes Year and Where: 2016 - [facility], 2006 - [facility] ([place]) HPI additional information: MERARY FISCHER was diagnosed to have severe, AHI 45.4, obstructive sleep apnea- hypopnea syndrome and returned today for CPAP therapy annual follow-up. Sleep Study - Results Prior sleep studies: Yes Year and Where: 2016 - [facility], 2006 - [facility] ([place]) CPAP Compliance Data - Data Reviewed with Patient Average duration of nightly device use: 7 hours 7 minutes Compliance rate %: 94.4 (170/180 days used) Current pressure setting (cmH2O): 18 Average residual AHI: 7.5 Central apnea: 0.3 Obstructive apnea: 2.2 Hypopnea: 5.0 Average large leak: 2 hours 4 minutes Subjective Patient concerns: reports: mask discomfort (mask pushing up on nose), dry mouth, nose, throat. denies: aerophagia, air blowing in eyes, mask leak noise, condensation in mask/hose, nasal congestion, epistaxis Observed to snore while using device: No Current pressure setting perceived as: comfortable On therapy, patient: reports: sleeping better, awakening more refreshed, being more awake and alert during the day, more rested overall. denies: drowsiness while driving Initial [place] Sleepiness Scale score: 14 (in 2017) Current [place] Sleepiness Scale score: 4 (07/10/22) Allergies and Home Medications Known drug allergies: No Drug allergies reviewed: Yes Home medication list reviewed: Yes (no changes) Allergy and home medication list: Allergies No Known Drug Allergies Allergy Review of Systems Review of systems same as previous: Yes (no changes) Physical Exam Vital signs obtained and entered by: MIRACLE Laura MA Blood Pressure: 102/70 (LEFT ARM) Cuff size: long Heart Rate: 100 O2 Saturation: 95 Height: 6 ft Weight: 317 lb 12.8 oz Body Mass Index: 43.1 BMI Classification: Morbidly Obese Impression and Plan 1. Obstructive Sleep Apnea-Hypopnea Syndrome, severe, with good treatment compliance and fair apnea control with elevation of residual AHI. On CPAP therapy, the patient has better sleep quality and is more rested overall but he has noted more afternoon fatigue and falling asleep during movies. His residual AHI is at 7.5, which is the best I have seen in his chart. He does continue to have an average large leak over 2 hours and his HI is elevated at 5.0. I thinks we need a better mask fit to reduce residual AHI. Patient has been using the Yancy view fullface hybrid mask. He states it is pushing up on his nose and he feels it might be contributing to his rosacea breaks out on his nose and cheeks. He would like to try the AirTouch fullface hybrid mask by [employer]. His son has this mask and he feels he would like to give it a try to see if it reduces the traction on his nose and is more comfortable. I will write for a mask refitting for this mask so that he can try it. Patient's apnea severity and rationale for treatment to reduce apnea, improve sleep quality and reduce cardiovascular and cerebrovascular events was reviewed. I also reviewed the benefit of consistent device use of CPAP for hypertension and arrhythmia. 2. Obesity, unspecified. Currently patients BMI is 43.1. Obesity increases the risk of apnea, CPAP pressure requirements and overall health risks especially cardiovascular and diabetes. Thus, patient is advised to lose weight. * Continue auto CPAP pressure at 18 cmH2O * Mask fitting for AirTouch full face mask, size large * Update supplies * Notify me if snoring with mask or feeling that the pressure is too much or too little * Attempt to lose weight * Call this office if any problems using CPAP * Return for follow up in 1-2 months, or sooner if concerns arise Counseling Topics: Spare mask, Weight loss health impact Visit Type: In Office Time Spent with Patient (minutes): 21 Provider Statement: I spent 100% of the Face to Face Visit with the patient with greater than 50% spent counseling the patient and coordination of care.
== END 2022-07-10 10:31 | disposition home or self-care (01) ==
LOC: SC 10:30
PROVIDERS: ATTEND Nurse Practitioner Family
DX: G47.33 Obstructive sleep apnea (adult) (pediatric) (principal); E66.01 Morbid (severe) obesity due to excess calories; Z68.41 Body mass index [BMI] 40.0-44.9, adult
CPT/HCPCS: 99213; G0463; 99212

== ENCOUNTER 2022-09-25 07:26 | Outpatient (CLI) | payer MEDICARE, OTHER ==
[2022-09-25 12:08] LABS: EOSINOPHILS # (AUTO) 0.1 10^3/uL (0.0-0.7); EOSINOPHILS % (AUTO) 2.2 %; HCT - HEMATOCRIT 47.3 % (42.0-52.0); HGB - HEMOGLOBIN 15.6 g/dL (14.0-18.0); LYMPHOCYTES # (AUTO) 1.1 10^3/uL (1.5-3.5); LYMPHOCYTES % (AUTO) 26.2 %; MEAN CORPUSCULAR VOLUME 87.9 fL (80.0-94.0); MEAN PLATELET VOLUME 10.1 fL (7.4-11.4); MONOCYTES # (AUTO) 0.4 10^3/uL (0.0-1.0); MONOCYTES % (AUTO) 8.7 %; NEUTROPHILS # (AUTO) 2.6 10^3/uL (1.5-6.6); NEUTROPHILS % (AUTO) 61.4 %; PLT - PLATELET COUNT 179 10^3/uL (130-450); RED BLOOD COUNT 5.38 10^6/uL (4.70-6.10); RED CELL DISTRIBUTION WIDTH 14.1 % (12.0-15.0); WHITE BLOOD COUNT 4.2 x10^3/uL (4.8-10.8)
[2022-09-25 12:20] LABS: ALBUMIN 4.2 g/dL (3.2-5.5); ALBUMIN/GLOBULIN RATIO 1.4 (1.0-2.2); ALKALINE PHOSPHATASE 61 IU/L (42-121); ALT ALANINE AMINOTRANSFERASE 23 IU/L (10-60); AST ASPARTATE AMINOTRANSFERASE 21 IU/L (10-42); BILIRUBIN,TOTAL 0.6 mg/dL (0.2-1.0); BUN - BLOOD UREA NITROGEN 15 mg/dL (6-20); CARBON DIOXIDE - CO2 27 mmol/L (21-32); CHLORIDE 107 mmol/L (101-111); CHOL/HDL RATIO 5.9 (<5.0); CHOLESTEROL 207 mg/dL; CREATININE 0.9 mg/dL (0.6-1.2); GFR - MDRD 84 (>89); GLUCOSE 119 mg/dL (70-100); HDL CHOLESTEROL 35 mg/dL; LDL CHOLESTEROL,CALCULATED 130 mg/dL; LDL/HDL RATIO 3.7 (<3.6); POTASSIUM 4.4 mmol/L (3.5-5.0); SODIUM 140 mmol/L (135-145); TOTAL PROTEIN 7.3 g/dL (6.7-8.2); TRIGLYCERIDES 209 mg/dL; VLDL CHOLESTEROL 42 mg/dL
[2022-09-25 12:34] LABS: ESTIMATED AVERAGE GLUCOSE 111 mg/dL (70-100); HEMOGLOBIN A1c% 5.5 % (4.27-6.07)
[2022-09-25 12:36] LABS: THYROID STIMULATING HORMONE 2.28 uIU/mL (0.34-5.60)
[2022-09-25 12:42] LABS: CREATININE,URINE 124.6 mg/dL; MICROALBUM/CREATININE RATIO,UR 5.6 ug/mg (<30.0); MICROALBUMIN,URINE 0.7 mg/dL (0-300.0)
== END 2022-09-25 07:27 | disposition home or self-care (01) ==
LOC: LAB.N 07:26
PROVIDERS: ATTEND Internal Medicine
DX: E78.5 Hyperlipidemia, unspecified (principal); R73.03 Prediabetes; N40.1 Benign prostatic hyperplasia with lower urinary tract symptoms; I48.21 Permanent atrial fibrillation
CPT/HCPCS: 36415; 80053; 80061; 82043; 82570; 83036; 83721; 84153; 84443; 85025

== ENCOUNTER 2022-09-25 09:32 | Outpatient (CLI) | payer MEDICARE, OTHER ==
--- NOTE | 2022-09-25 10:25 | SLEEP CARE CONSULTATION ---
Information from patient questionnaire entered by Miracle Robledo. I have reviewed and concur with the information entered by Miracle Robledo. This document represents the service I personally performed and the decisions made by me, Shira Hunt ARNP. History of Present Illness Service Date and Time: 09/25/2022931 Previous diagnosis: Severe, Obstructive Sleep Apnea-Hypopnea Syndrome AHI: 45.4 (in 2017) Reason for follow up: three month (F/U) Equipment type: CPAP (ALVAREZ Dreamstation; SD NEEDED FOR DOWNLOAD AND PRESSURE CHANGES) Equipment obtained from: [employer] (getting supplies as needed) Mask style: Full face Mask brand: Resmed (Airtouch F20 (or Yancy View)) Backup mask available: Yes (other mask) Prior sleep studies: Yes Year and Where: 2016 - [facility], 2005 - [facility] ([place]) HPI additional information: MERARY FISCHER was diagnosed to have severe, AHI 45.4, obstructive sleep apnea- hypopnea syndrome and returned today for CPAP therapy three month follow-up. Sleep Study - Results Prior sleep studies: Yes Year and Where: 2016 - [facility], 2005 - [facility] ([place]) CPAP Compliance Data - Data Reviewed with Patient Average duration of nightly device use: 6 hours 43 minutes Compliance rate %: 100 (90/90 days used) Current pressure setting (cmH2O): 18 Average residual AHI: 6.8 Average large leak: 1 hrs, 35 mins, 25 secs Subjective Patient concerns: reports: dry mouth, nose, throat, other (acne/rosacea; pressure feels too much to breathe out against). denies: aerophagia, mask discomfort, air blowing in eyes, mask leak noise, condensation in mask/hose, nasal congestion, epistaxis Observed to snore while using device: No Current pressure setting perceived as: comfortable On therapy, patient: reports: sleeping better, awakening more refreshed, being more awake and alert during the day, more rested overall. denies: drowsiness while driving Initial [place] Sleepiness Scale score: 14 (in 2017) Current [place] Sleepiness Scale score: 3 (09/25/22) Allergies and Home Medications Known drug allergies: No Drug allergies reviewed: Yes Home medication list reviewed: Yes (no changes) Allergy and home medication list: Allergies No Known Drug Allergies Allergy Review of Systems Review of systems same as previous: Yes (no changes) Physical Exam Vital signs obtained and entered by: MIRACLE Laura MA Blood Pressure: 136/82 (LEFT ARM) Cuff size: regular Heart Rate: 77 O2 Saturation: 96 Height: 6 ft Weight: 321 lb 6.4 oz Body Mass Index: 43.5 BMI Classification: Morbidly Obese Impression and Plan 1. Obstructive Sleep Apnea-Hypopnea Syndrome, severe, with good treatment compliance and fair apnea control. On CPAP therapy, the patient has better sleep quality and is more rested overall. Patient tried the AirTouch F20 feels that it is too difficult to breathe against the pressure in this mask. He feels like it is just "blowing him up". He feels the pressure is just too high when it is at 18 and is concerned it is waking him up regularly through the night. He usually wakes up between an hour to an hour and a half through the night and the pressure is always at 18 cmH2O as programmed. I will adjust to APAP 15-18 cm H2O for patient comfort and also order a Vcom adapter to help reduce the feel of the pressure. I will then have him follow-up in 1 to 2 months to see how he is doing. If we are still having issues, I may consider ordering a titration study since he is using at top of pressure and we still do not have good apnea control. Patient's apnea severity and rationale for treatment to reduce apnea, improve sleep quality and reduce cardiovascular and cerebrovascular events was reviewed. I also reviewed the benefit of consistent device use of CPAP for hypertension and arrhythmia. 2. Obesity, unspecified. Currently patients BMI is 43.5. Obesity increases the risk of apnea, CPAP pressure requirements and overall health risks especially cardiovascular and diabetes. Thus patient is advised to lose weight. * Change auto CPAP pressure to 15-18 cmH2O * Notify me if snoring with mask or feeling that the pressure is too much or too little * Attempt to lose weight * Call this office if any problems using CPAP * Return for follow up in 1-2 months, or sooner if concerns arise Counseling Topics: Spare mask, Weight loss health impact Visit Type: In Office Time Spent with Patient (minutes): 32 Provider Statement: I spent 100% of the Face to Face Visit with the patient with greater than 50% spent counseling the patient and coordination of care.
[2022-09-25 10:41] VITALS: BP 136/82
== END 2022-09-25 09:33 | disposition home or self-care (01) ==
LOC: SC 09:32
PROVIDERS: ATTEND Nurse Practitioner Family
DX: G47.33 Obstructive sleep apnea (adult) (pediatric) (principal); E66.01 Morbid (severe) obesity due to excess calories; Z68.41 Body mass index [BMI] 40.0-44.9, adult; R73.03 Prediabetes; E78.5 Hyperlipidemia, unspecified; N40.1 Benign prostatic hyperplasia with lower urinary tract symptoms; I48.21 Permanent atrial fibrillation
CPT/HCPCS: 36415; 80053; 80061; 82043; 82570; 83036; 84153; 84443; 85025; 99214; G0463; 83721; 99212

== ENCOUNTER 2022-10-29 08:17 | Outpatient (CLI) | payer MEDICARE, OTHER ==
--- NOTE | 2022-10-29 09:00 | Sleep Patient Instructions ---
Sleep Center Visit Summary - Patient Visit Information Reason for Visit: 1 month followup for PAP therapy - Patient Instructions Additional Instructions: You were here for follow up of CPAP therapy. You will be continued on CPAP therapy with pressure at 15-18 cmH2O. You should follow up with sleep care in 12 months. You may contact us sooner for any questions or concerns. - Clinic Information Contact: [facility] [address] [place] [address] [email or web address] T: [phone]
--- NOTE | 2022-10-29 09:07 | SLEEP CARE CONSULTATION ---
Information from patient questionnaire entered by Miracle Robledo. I have reviewed and concur with the information entered by Miracle Robledo. This document represents the service I personally performed and the decisions made by me, Shira Hunt ARNP. History of Present Illness Service Date and Time: 10/29/2022 0817 Previous diagnosis: Severe, Obstructive Sleep Apnea-Hypopnea Syndrome AHI: 45.4 (in 2017) Reason for follow up: one month Equipment type: CPAP (ALVAREZ Dreamstation; SD NEEDED FOR DOWNLOAD AND PRESSURE CHANGES) Equipment obtained from: [employer] (getting supplies as needed) Mask style: Full face Mask brand: Resmed (AirTouch F20, medium) Backup mask available: Yes (other mask) Last cushion change: 30 days Prior sleep studies: Yes Year and Where: 2016 - [facility], 2005 - [facility] [facility] ([place]) HPI additional information: MERARY FISCHER was diagnosed to have severe, AHI 45.4, obstructive sleep apnea- hypopnea syndrome and returned today for CPAP therapy one month follow-up. Sleep Study - Results Prior sleep studies: Yes Year and Where: 2016 - [facility], 2006 - [facility] [facility] ([place]) CPAP Compliance Data - Data Reviewed with Patient Average duration of nightly device use: 6 hours 10 minutes Compliance rate %: 100 (09/29/2022-10/28/2022; 30 days used) Current pressure setting (cmH2O): 15-18 Average residual AHI: 5.4 Central apnea: 0.4 Obstructive apnea: 3.9 Hypopnea: 1.1 Average large leak: 8 mins 46 secs Subjective Patient concerns: denies: aerophagia, mask discomfort, air blowing in eyes, mask leak noise, condensation in mask/hose, nasal congestion, dry mouth, nose, throat, epistaxis Observed to snore while using device: No Current pressure setting perceived as: comfortable On therapy, patient: reports: sleeping better, awakening more refreshed, being more awake and alert during the day, more rested overall. denies: drowsiness while driving Initial [place] Sleepiness Scale score: 14 (in 2017) Current [place] Sleepiness Scale score: 4 Allergies and Home Medications Known drug allergies: No Drug allergies reviewed: Yes Home medication list reviewed: Yes (Sulfasalazine for arthritis) Allergy and home medication list: Allergies No Known Drug Allergies Allergy (Verified 10/28/22 08:38) Review of Systems Review of systems same as previous: Yes (no changes) Physical Exam Vital signs obtained and entered by: Shira Amado NP Blood Pressure: 127/85 Cuff size: wrist (left) Heart Rate: 83 O2 Saturation: 95 Height: 6 ft Weight: 315 lb 3.2 oz Body Mass Index: 42.7 BMI Classification: Morbidly Obese Impression and Plan 1. Obstructive Sleep Apnea-Hypopnea Syndrome, severe, with good treatment compliance and good apnea control with minimal elevation of residual AHI. On CPAP therapy, the patient has better sleep quality and is more rested overall. Patient has settled upon medium cushion, AirTouch fullface mask. He feels it is doing well and the pressure at current setting is more comfortable. He may adjust his ramp starting pressure a little higher but is otherwise happy with current settings. Patient denies problems with oral dryness, nasal congestion, epistaxis, skin irritation or aerophagia. Patient has significant improvement of their sleep apnea and is satisfied with current CPAP therapy.Patient's apnea severity and rationale for treatment to reduce apnea, improve sleep quality and reduce cardiovascular and cerebrovascular events was reviewed. I also reviewed the benefit of consistent device use of CPAP for hypertension and arrhythmia. 2. Obesity, unspecified. Currently patients BMI is 42.7. Obesity increases the risk of apnea, CPAP pressure requirements and overall health risks especially cardiovascular and diabetes. Thus patient is advised to lose weight. * Continue auto CPAP pressure at 15-18 cmH2O * Update supply prescription * Notify me if snoring with mask or feeling that the pressure is too much or too little * Attempt to lose weight * Call this office if any problems using CPAP * Return for follow up in 1 year, or sooner if concerns arise Counseling Topics: Spare mask, Weight loss health impact Visit Type: In Office Time Spent with Patient (minutes): 23 Provider Statement: I spent 100% of the Face to Face Visit with the patient with greater than 50% spent counseling the patient and coordination of care.
[2022-10-29 09:12] VITALS: BP 127/85
== END 2022-10-29 08:18 | disposition home or self-care (01) ==
LOC: SC 08:17
PROVIDERS: ATTEND Nurse Practitioner Family
DX: G47.33 Obstructive sleep apnea (adult) (pediatric) (principal); E66.01 Morbid (severe) obesity due to excess calories; Z68.41 Body mass index [BMI] 40.0-44.9, adult
CPT/HCPCS: 99213; G0463; 99212

== ENCOUNTER 2023-01-07 14:01 | Outpatient (CLI) | payer MEDICARE, OTHER ==
[2023-01-07 18:06] LABS: ALBUMIN 4.2 g/dL (3.2-5.5); ALKALINE PHOSPHATASE 70 IU/L (42-121); ALT ALANINE AMINOTRANSFERASE 15 IU/L (10-60); AST ASPARTATE AMINOTRANSFERASE 17 IU/L (10-42); BILIRUBIN,DIRECT < 0.10 mg/dL (0.03-0.18); BILIRUBIN,TOTAL 0.4 mg/dL (0.2-1.0); BUN - BLOOD UREA NITROGEN 15 mg/dL (6-20); CREATININE 0.9 mg/dL (0.6-1.3); GFR - MDRD 84 (>89); TOTAL PROTEIN 6.8 g/dL (6.4-8.9)
== END 2023-01-07 14:02 | disposition home or self-care (01) ==
LOC: LAB.N 14:01
PROVIDERS: ATTEND Physician Assistant Medical
DX: B35.1 Tinea unguium (principal)
CPT/HCPCS: 36415; 80076; 82565; 84520

== ENCOUNTER 2023-03-12 07:49 | Outpatient (CLI) | payer MEDICARE, OTHER ==
[2023-03-12 12:06] LABS: BASOPHILS % (AUTO) 0.7 %; EOSINOPHILS % (AUTO) 0.7 %; HCT - HEMATOCRIT 46.3 % (42.0-52.0); HGB - HEMOGLOBIN 15.3 g/dL (14.0-18.0); LYMPHOCYTES # (AUTO) 0.9 10^3/uL (1.5-3.5); MEAN CORPUSCULAR HEMOGLOBIN 28.7 pg (27.0-31.0); MEAN CORPUSCULAR VOLUME 86.9 fL (80.0-94.0); MONOCYTES # (AUTO) 0.7 10^3/uL (0.0-1.0); MONOCYTES % (AUTO) 12.1 %; NEUTROPHILS # (AUTO) 4.1 10^3/uL (1.5-6.6); NEUTROPHILS % (AUTO) 70.2 %; PLT - PLATELET COUNT 181 10^3/uL (130-450); RED BLOOD COUNT 5.33 10^6/uL (4.70-6.10); RED CELL DISTRIBUTION WIDTH 13.7 % (12.0-15.0); WHITE BLOOD COUNT 5.8 x10^3/uL (4.8-10.8)
[2023-03-12 12:21] LABS: ALBUMIN 4.3 g/dL (3.2-5.5); ALBUMIN/GLOBULIN RATIO 1.5 (1.0-2.2); ALKALINE PHOSPHATASE 70 IU/L (42-121); ALT ALANINE AMINOTRANSFERASE 19 IU/L (10-60); AST ASPARTATE AMINOTRANSFERASE 21 IU/L (10-42); BILIRUBIN,TOTAL 0.5 mg/dL (0.2-1.0); BUN - BLOOD UREA NITROGEN 20 mg/dL (6-20); CALCIUM 9.4 mg/dL (8.5-10.3); CARBON DIOXIDE - CO2 26 mmol/L (21-32); CHLORIDE 105 mmol/L (101-111); CHOL/HDL RATIO 5.6 (<5.0); CHOLESTEROL 195 mg/dL; CREATININE 0.9 mg/dL (0.6-1.3); GFR - MDRD 84 (>89); GLUCOSE 119 mg/dL (74-104); HDL CHOLESTEROL 35 mg/dL; LDL CHOLESTEROL,CALCULATED 120 mg/dL; LDL/HDL RATIO 3.4 (<3.6); SODIUM 137 mmol/L (135-145); TOTAL PROTEIN 7.1 g/dL (6.4-8.9); TRIGLYCERIDES 202 mg/dL (48-352); VLDL CHOLESTEROL 40 mg/dL
[2023-03-12 12:26] LABS: THYROID STIMULATING HORMONE 2.49 uIU/mL (0.34-5.60)
[2023-03-12 12:36] LABS: ESTIMATED AVERAGE GLUCOSE 108 mg/dL (70-100); HEMOGLOBIN A1c% 5.4 % (4.27-6.07)
== END 2023-03-12 07:50 | disposition home or self-care (01) ==
LOC: LAB.N 07:49
PROVIDERS: ATTEND Internal Medicine
DX: E78.5 Hyperlipidemia, unspecified (principal); R73.03 Prediabetes; I48.21 Permanent atrial fibrillation; M45.9 Ankylosing spondylitis of unspecified sites in spine
CPT/HCPCS: 36415; 80053; 80061; 83036; 83721; 84443; 85025

== ENCOUNTER 2023-07-10 07:30 | Outpatient (CLI) | payer MEDICARE, OTHER ==
[2023-07-10 12:14] LABS: BASOPHILS % (AUTO) 0.8 %; EOSINOPHILS % (AUTO) 0.4 %; HGB - HEMOGLOBIN 16.1 g/dL (14.0-18.0); LYMPHOCYTES # (AUTO) 1.1 10^3/uL (1.5-3.5); LYMPHOCYTES % (AUTO) 20.8 %; MEAN CORPUSCULAR HEMOGLOBIN 29.4 pg (27.0-31.0); MEAN CORPUSCULAR HGB CONC 33.5 g/dL (32.0-36.0); MEAN CORPUSCULAR VOLUME 87.8 fL (80.0-94.0); MEAN PLATELET VOLUME 10.1 fL (7.4-11.4); MONOCYTES # (AUTO) 0.5 10^3/uL (0.0-1.0); MONOCYTES % (AUTO) 9.1 %; NEUTROPHILS # (AUTO) 3.6 10^3/uL (1.5-6.6); NEUTROPHILS % (AUTO) 68.5 %; PLT - PLATELET COUNT 189 10^3/uL (130-450); RED BLOOD COUNT 5.47 10^6/uL (4.70-6.10); RED CELL DISTRIBUTION WIDTH 14.1 % (12.0-15.0); WHITE BLOOD COUNT 5.2 x10^3/uL (4.8-10.8)
[2023-07-10 12:24] LABS: ALBUMIN 4.4 g/dL (3.2-5.5); ALBUMIN/GLOBULIN RATIO 1.5 (1.0-2.2); ALKALINE PHOSPHATASE 64 IU/L (42-121); ALT ALANINE AMINOTRANSFERASE 23 IU/L (10-60); AST ASPARTATE AMINOTRANSFERASE 22 IU/L (10-42); BILIRUBIN,TOTAL 0.7 mg/dL (0.2-1.0); BUN - BLOOD UREA NITROGEN 23 mg/dL (6-20); CALCIUM 9.5 mg/dL (8.5-10.3); CARBON DIOXIDE - CO2 22 mmol/L (21-32); CHLORIDE 107 mmol/L (101-111); CHOLESTEROL 209 mg/dL; CREATININE 1.1 mg/dL (0.6-1.3); GFR - MDRD 67 (>89); GLUCOSE 121 mg/dL (74-104); HDL CHOLESTEROL 35 mg/dL; LDL CHOLESTEROL,CALCULATED 111 mg/dL; LDL/HDL RATIO 3.2 (<3.6); POTASSIUM 4.1 mmol/L (3.5-4.5); SODIUM 137 mmol/L (135-145); TOTAL PROTEIN 7.4 g/dL (6.4-8.9); TRIGLYCERIDES 313 mg/dL (48-352); VLDL CHOLESTEROL 63 mg/dL
[2023-07-10 12:43] LABS: ESTIMATED AVERAGE GLUCOSE 108 mg/dL (70-100); HEMOGLOBIN A1c% 5.4 % (4.27-6.07)
== END 2023-07-10 07:31 | disposition home or self-care (01) ==
LOC: LAB.N 07:30
PROVIDERS: ATTEND Internal Medicine
DX: M45.9 Ankylosing spondylitis of unspecified sites in spine (principal); E78.5 Hyperlipidemia, unspecified; R73.03 Prediabetes
CPT/HCPCS: 36415; 80053; 80061; 83036; 83721; 85025

== ENCOUNTER 2023-11-11 07:22 | Outpatient (CLI) | payer MEDICARE ==
[2023-11-11 11:52] LABS: BASOPHILS % (AUTO) 0.7 %; EOSINOPHILS % (AUTO) 0.7 %; HCT - HEMATOCRIT 48.8 % (42.0-52.0); HGB - HEMOGLOBIN 15.7 g/dL (14.0-18.0); LYMPHOCYTES # (AUTO) 1.1 10^3/uL (1.5-3.5); LYMPHOCYTES % (AUTO) 20.4 %; MEAN CORPUSCULAR HEMOGLOBIN 28.6 pg (27.0-31.0); MEAN CORPUSCULAR HGB CONC 32.2 g/dL (32.0-36.0); MEAN CORPUSCULAR VOLUME 89.1 fL (80.0-94.0); MEAN PLATELET VOLUME 10.4 fL (7.4-11.4); MONOCYTES # (AUTO) 0.6 10^3/uL (0.0-1.0); MONOCYTES % (AUTO) 10.7 %; NEUTROPHILS # (AUTO) 3.6 10^3/uL (1.5-6.6); NEUTROPHILS % (AUTO) 66.9 %; PLT - PLATELET COUNT 182 10^3/uL (130-450); RED BLOOD COUNT 5.48 10^6/uL (4.70-6.10); WHITE BLOOD COUNT 5.4 x10^3/uL (4.8-10.8)
[2023-11-11 12:15] LABS: ESTIMATED AVERAGE GLUCOSE 103 mg/dL (70-100); HEMOGLOBIN A1c% 5.2 % (4.27-6.07)
[2023-11-11 12:18] LABS: ALBUMIN 4.3 g/dL (3.2-5.5); ALBUMIN/GLOBULIN RATIO 1.4 (1.0-2.2); ALKALINE PHOSPHATASE 61 IU/L (42-121); ALT ALANINE AMINOTRANSFERASE 21 IU/L (10-60); AST ASPARTATE AMINOTRANSFERASE 20 IU/L (10-42); BILIRUBIN,TOTAL 0.7 mg/dL (0.2-1.0); BUN - BLOOD UREA NITROGEN 15 mg/dL (6-20); CALCIUM 9.4 mg/dL (8.5-10.3); CARBON DIOXIDE - CO2 29 mmol/L (21-32); CHLORIDE 104 mmol/L (101-111); CHOLESTEROL 210 mg/dL; GFR - MDRD 74 (>89); GLUCOSE 113 mg/dL (74-104); HDL CHOLESTEROL 35 mg/dL; LDL CHOLESTEROL,CALCULATED 117 mg/dL; LDL/HDL RATIO 3.3 (<3.6); POTASSIUM 4.5 mmol/L (3.5-4.5); SODIUM 138 mmol/L (135-145); TOTAL PROTEIN 7.3 g/dL (6.4-8.9); TRIGLYCERIDES 290 mg/dL; VLDL CHOLESTEROL 58 mg/dL
[2023-11-11 12:29] LABS: THYROID STIMULATING HORMONE 3.07 uIU/mL (0.34-5.60)
[2023-11-11 12:29] LABS: CREATININE,URINE 143.4 mg/dL; MICROALBUM/CREATININE RATIO,UR 9.1 ug/mg (<30.0); MICROALBUMIN,URINE 1.3 mg/dL
== END 2023-11-11 07:23 | disposition home or self-care (01) ==
LOC: LAB.N 07:22
PROVIDERS: ATTEND Internal Medicine
DX: I10 Essential (primary) hypertension (principal); E78.5 Hyperlipidemia, unspecified; R73.03 Prediabetes; N40.1 Benign prostatic hyperplasia with lower urinary tract symptoms; I48.21 Permanent atrial fibrillation
CPT/HCPCS: 36415; 80053; 80061; 82043; 82570; 83036; 83721; 84153; 84443; 85025

== ENCOUNTER 2023-12-04 08:48 | Outpatient (CLI) | payer MEDICARE ==
--- NOTE | 2023-12-04 09:29 | Sleep Patient Instructions ---
Sleep Center Visit Summary - Patient Visit Information Reason for Visit: Annual follow-up - Patient Instructions Additional Instructions: You will continue with CPAP therapy with pressure set at 15-18 cmH2O. A supply prescription will be updated with your DME supplier. We encourage you to continue to try to lose weight. Please follow up with the sleep care office in 1 year. - Clinic Information Contact: [facility] [address] [place] [address] [email or web address] T: [phone]
--- NOTE | 2023-12-04 09:33 | SLEEP CARE CONSULTATION ---
Information from patient questionnaire entered by Theresa Wilder. I have reviewed and concur with the information entered by Theresa Wilder. This document represents the service I personally performed and the decisions made by me, Shira Hunt ARNP. History of Present Illness Service Date and Time: 12/04/2023 0848 Previous diagnosis: Severe, Obstructive Sleep Apnea-Hypopnea Syndrome AHI: 45.4 (in 2017) Reason for follow up: annual (Last seen 10/2022) Equipment type: CPAP (combionic Dreamstatio 2) Equipment obtained from: [employer] (getting supplies as needed) Mask style: Full face Backup mask available: Yes Last cushion change: rotating cushions Prior sleep studies: Yes Year and Where: 2016 - [facility], 2006 - [facility] ([place]) HPI additional information: MERARY FISCHER was diagnosed to have severe, AHI 45.4, obstructive sleep apnea- hypopnea syndrome and returned today for CPAP therapy annual follow-up. Sleep Study - Results Prior sleep studies: Yes Year and Where: 2016 - [facility], 2006 - [facility] ([place]) CPAP Compliance Data - Data Reviewed with Patient Average duration of nightly device use: 4 h 52 min Compliance rate %: 70 Current pressure setting (cmH2O): 15-18 Humidity settin Heated hose settin Average residual AHI: 0.8 Central apnea: 0.2 Obstructive apnea: 0.3 Hypopnea: 0.3 Average large leak: 2 mins 8 secs Compliance data discussion: He just started using his Dreamstation 2 about 10 days ago. He was using his old Dreamstation prior to the change. Subjective Missed days of use due to: reports: other (changed to new Dreamstation 2) Patient concerns: reports: mask discomfort. denies: aerophagia, air blowing in eyes, mask leak noise, condensation in mask/hose, nasal congestion, dry mouth, nose, throat, epistaxis Observed to snore while using device: No Current pressure setting perceived as: comfortable On therapy, patient: reports: sleeping better, awakening more refreshed, being more awake and alert during the day, more rested overall. denies: drowsiness while driving Initial [place] Sleepiness Scale score: 14 (in 2017) Current [place] Sleepiness Scale score: 4 (12/04/23) Allergies and Home Medications Known drug allergies: No Drug allergies reviewed: Yes Home medication list reviewed: Yes (no changes) Allergy and home medication list: Allergies No Known Drug Allergies Allergy Review of Systems Review of systems same as previous: Yes (no changes) Physical Exam Vital signs obtained and entered by: Shira Amado NP Blood Pressure: 139/89 Cuff size: long (left arm) Heart Rate: 91 O2 Saturation: 95 Height: 6 ft Weight: 330 lb Body Mass Index: 44.7 BMI Classification: Morbidly Obese Impression and Plan 1. Obstructive Sleep Apnea-Hypopnea Syndrome, severe, with good treatment compliance and good apnea control. On CPAP therapy, the patient has better sleep quality and is more rested overall. He has significant improvement of his sleep apnea and is comfortable with CPAP use. He changed from the old DreamStation that was on the recall to the DreamStation 2 that he got as a replacement. His average AHI has much improved with changing to the new device. He is getting comfortable using it but is concerned about being dependent. He does have a battery backup as needed if the power goes out. Patient's apnea severity and rationale for treatment to reduce apnea, improve sleep quality and reduce cardiovascular and cerebrovascular events was reviewed. I also reviewed the benefit of consistent device use of CPAP for hypertension, arrhythmia. 2. Obesity, unspecified. Currently patients BMI is 44.7. Obesity increases the risk of apnea, CPAP pressure requirements and overall health risks especially cardiovascular and diabetes. Thus patient is advised to try to lose weight. * Continue auto CPAP pressure at 15-18 cmH2O * Update supply prescription. * Notify me if snoring with mask or feeling that the pressure is too much or too little * Attempt to lose weight * Call this office if any problems using CPAP * Return for follow up in 12 months, or sooner if concerns arise Counseling Topics: Spare mask, Weight loss health impact Prescriptions: Device supplies Follow up with Sleep Care in: 1 year Visit Type: In Office Time Spent with Patient (minutes): 29 Provider Statement: I spent 100% of the Face to Face Visit with the patient with greater than 50% spent counseling the patient and coordination of care.
[2023-12-04 09:39] VITALS: BP 139/89; O2SAT 95
== END 2023-12-04 08:49 | disposition home or self-care (01) ==
LOC: SC 08:48
PROVIDERS: ATTEND Nurse Practitioner Family
DX: G47.33 Obstructive sleep apnea (adult) (pediatric) (principal); E66.01 Morbid (severe) obesity due to excess calories; Z68.41 Body mass index [BMI] 40.0-44.9, adult
CPT/HCPCS: 99213; G0463; 99212